=== PATIENT | male | born 1995 | race Caucasian/White ===

== ENCOUNTER 2018-01-13 13:14 | Emergency (ER) | payer OTHER ==
[~2018-01-13] VITALS: Ht 182.9 cm; Wt 88.5 kg
[~2018-01-13 13:14] MED LIST: A-B OTIC EAR DR15 ML OT; CLARITIN10 MG; IBUPROFEN 800800 M1 PO; NOHOMEMEDICATIONS; TRAMADOL 50 MG50 MG PO
[2018-01-13 13:38] LABS: URINE BILIRUBIN NEGATIVE (Negative); URINE BLOOD NEGATIVE (Negative); URINE CLARITY CLEAR; URINE COLOR YELLOW; URINE GLUCOSE-RANDOM NEGATIVE (Negative); URINE KETONES NEGATIVE (Negative); URINE LEUKOCYTES-REFLEX NEGATIVE (Negative); URINE NITRITE-REFLEX NEGATIVE (Negative); URINE PROTEIN TRACE (Negative); URINE UROBILINOGEN 0.2 E.U./dl (0.2-1.0)
[2018-01-13 13:46] LABS: AMP/METHAMP Negative (Negative); BARBITURATES Negative (Negative); BENZODIAZEPINES Negative (Negative); COCAINE Negative (Negative); METHADONE Negative (Negative); OPIATES Negative (Negative); PCP Negative (Negative); THC Negative (Negative)
[2018-01-13 14:02] LABS: ABSOLUTE BASOPHILS 0.1 thou/uL (0.0-0.2); ABSOLUTE LYMPHOCYTES 1.6 thou/uL (0.8-5.3); ABSOLUTE MONOCYTES 0.5 thou/uL (0.0-1.2); ABSOLUTE NEUTROPHILS 3.2 thou/uL (1.6-8.1); EOSINOPHILS 0.6 %; HEMATOCRIT 45.1 % (42.0-52.0); HEMOGLOBIN 15.1 gm/dL (14.0-18.0); LYMPHOCYTES 30.7 %; MCH 29.1 pg (26.0-34.0); MCHC 33.6 g/dL (28.0-37.0); MCV 86.7 fL (80.0-100.0); MONOCYTES 8.6 %; MPV 8.2 fl. (7.2-11.1); NUCLEATED RBCS 0 /100WBC; PLATELET COUNT* 222 thou/uL (150-400); POLYS 59.1 %; RBC 5.21 mil/uL (4.50-6.00); RDW-CV 12.8 % (10.5-14.5); WBC 5.3 thou/uL (4.0-11.0)
[2018-01-13 14:10] LABS: CALCIUM 9.1 mg/dL (8.5-10.1); POTASSIUM 4.1 mmol/L (3.5-5.1)
[2018-01-13 14:14] LABS: ALBUMIN 4.1 g/dL (3.4-5.0); TOTAL BILIRUBIN 0.4 mg/dL (<0.1-1.0); TOTAL PROTEIN 7.4 g/dL (6.4-8.2)
[2018-01-13] MEDS ORDERED: PHENERGAN 25 MG25 M1 PO (14:18)
[2018-01-13 14:37] VITALS: BP 112/63
== END 2018-01-13 14:37 | disposition home or self-care (01) ==
LOC: M.ERS 13:14
PROVIDERS: Physician Assistant
DX: R11.2 Nausea with vomiting, unspecified (principal); K21.9 Gastro-esophageal reflux disease without esophagitis